=== PATIENT | male | born 1940 | race Caucasian/White ===

== ENCOUNTER → 2017-06-13 | Day surgery (SDC) | payer MEDICARE, OTHER ==
[2017-06-13] VITALS (7 sets, daily range): BP systolic 116–126; BP diastolic 76–92; PULSE 56–71; RESP 12–18; O2SAT 94–98
[~2017-06-13] VITALS: Ht 188 cm; Wt 116.1 kg
[~2017-06-13] MED LIST: ASPI325T32 PO; Atropine 0.4 mg/mL Inj IVPUSH PRN; CeFAZolin 2 Gm/50 mL D5W Duplex Bag IV ONE; CeFAZolin Inj 2 GM in IV Premix 1 EACH IV ONE; DICL100G26 TOPICAL; Dexamethasone 4 mg/mL Inj IVPUSH PRN; EMPA10TA PO; EPHEDrine Sulfate 50 mg/mL Inj IVPUSH PRN; EPHEDrine/NS 5 mg/mL 5 mL Syringe ONE; HYDR-4003 PO; HYDROcodone-APAP 5-325 mg Tablet PO PRN; HYDROmorphone 1 mg/mL Inj IVPUSH PRN; LISI40TA PO; Lactated Ringer's 1,000 ML IV SCH; Lactated Ringer's 500 ML IV PRN; METF1000 PO; MetoCLOpramide 5 mg/mL 2 mL Inj IVPUSH PRN; Ondansetron 2 mg/mL 2 mL Inj IVPUSH PRN; Ondansetron 2 mg/mL 2 mL Inj ONE; Phenylephrine 10,000 mCg/mL Inj IVPUSH PRN; Propofol 10,000 mCg/mL 20 mL Inj ONE; SILD100T PO; SIMV40TA5 PO; TAMS0.4C98 PO; fentaNYL-PF 50 mCg/mL 2 mL Inj IVPUSH PRN; fentaNYL-PF 50 mCg/mL 2 mL Inj ONE
[2017-06-13] MEDS: Lactated Ringer's 1,000 ML IV SCH ×2 (06:37→07:29)
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
--- NOTE | 2017-06-13 08:18 | PCM.ANEP1 ---
Post Anesthesia PACU Phase 1 Assessment Date of Service: Jun 13, 2017 Vital Signs 36.5 121/82 71 12 94% RA Anesthetic Administered: GA Level of Alertness: Awake, talking DO's with Equal Strength: Yes Pain: Yes Pain Scale Score: 2 Nausea or Vomiting: No CV Function & Hydration Stable: Yes Airway Device: Oxygen Delivery: Room Air Lungs: Clear to Auscultation, Normal Air Movement PACU Phase 2 Assessment Complications: No Follow up Care: N/A Patient Instructions Provided: N/A Law Montoya MD Jun 13, 2017 08:18
--- NOTE | 2017-06-13 08:41 | DRSVH ---
PROCEDURE: X-RAY KUB ([id number]) INDICATIONS: RIGHT KIDNEY STONE TECHNIQUE: One view of the abdomen acquired. COMPARISON: [facility], CR, XR KUB, 05/27/2017, 10:07. FINDINGS: Surgical changes and devices: None. Bowel: Bowel gas pattern is normal. Soft tissues: There is unchanged appearance of a 5 mm right renal calcification Bones: Multilevel discogenic changes and mild bilateral hip joint degeneration IMPRESSION: Unchanged right nephrolithiasis since 05/27/17 Dictated by: Aureliano Cunningham M.D. on 06/13/2017 at 8:36 Approved by: Aureliano Cunningham M.D. on 06/13/2017 at 8:40
--- NOTE | 2017-06-13 10:36 | OP ---
[address] [address] OPERATIVE REPORT PATIENT: MAYO LOCKWOOD : 1940 MR#: [id number] ADMIT: 06/13/2017 JOB ID: [id number] DATE OF SURGERY: 06/13/2017 PREOPERATIVE DIAGNOSIS(ES): Right kidney stone. POSTOPERATIVE DIAGNOSIS(ES): Right kidney stone. PROCEDURE PERFORMED: Right extracorporeal shockwave lithotripsy. SURGEON: Enma Reeder MD BIOLOGICAL SCIENCE TECHNICIAN: None. FINDINGS: 1. Right upper pole kidney stone. 2. 2000 shocks in total delivered to the kidney stone, power level between 4 and 7. 3. Excellent hazing of the stone within the first several hundred shocks. ANESTHESIA: General. ESTIMATED BLOOD LOSS: None. DRAINS: None. SPECIMENS: None. COMPLICATIONS: None. CONDITION: Stable. INDICATION FOR PROCEDURE: The patient is a 77-year-old gentleman with a right kidney stone. He now presents for the aforementioned procedure. DESCRIPTION OF PROCEDURE: After informed consent was obtained, the patient was taken to the operating room. Time-out was performed, identifying correct patient, surgical site, and procedure. General anesthesia was smoothly induced. He was given intravenous antibiotics just prior to start of procedure. He was placed in a supine position. He was placed over the lithotripter device. The stone was easily located within the cross hairs. The stone was submitted to the aforementioned shocks. There was excellent hazing of the stone. At the termination of procedure the stone could no longer be seen on fluoroscopy. The patient appeared to tolerate the procedure well without apparent complication. He was reversed from general anesthesia and taken to the PACU in good and stable condition. CAILIN
== END | disposition home or self-care (01) ==
LOC: SAS 05:30
PROVIDERS: ATTEND Urology
DX: N20.0 Calculus of kidney (principal); I10 Essential (primary) hypertension; E11.9 Type 2 diabetes mellitus without complications; E78.5 Hyperlipidemia, unspecified; I73.00 Raynaud's syndrome without gangrene; Z87.891 Personal history of nicotine dependence; E66.9 Obesity, unspecified; Z68.33 Body mass index [BMI] 33.0-33.9, adult; Z79.82 Long term (current) use of aspirin; Z79.84 Long term (current) use of oral hypoglycemic drugs
CPT/HCPCS: 50590; 74000; J0690; J2405; J2704; J3010; J7120

== ENCOUNTER 2017-06-16 11:00 | Emergency (ER) | payer MEDICARE, OTHER ==
[~2017-06-16] VITALS: Ht 188 cm; Wt 116.0 kg
[~2017-06-16 11:00] MED LIST changes: -Atropine 0.4 mg/mL Inj IVPUSH PRN; -CeFAZolin 2 Gm/50 mL D5W Duplex Bag IV ONE; -CeFAZolin Inj 2 GM in IV Premix 1 EACH IV ONE; -DICL100G26 TOPICAL; -Dexamethasone 4 mg/mL Inj IVPUSH PRN; -EPHEDrine Sulfate 50 mg/mL Inj IVPUSH PRN; -EPHEDrine/NS 5 mg/mL 5 mL Syringe ONE; -HYDROcodone-APAP 5-325 mg Tablet PO PRN; -HYDROmorphone 1 mg/mL Inj IVPUSH PRN; -Lactated Ringer's 1,000 ML IV SCH; -Lactated Ringer's 500 ML IV PRN; -MetoCLOpramide 5 mg/mL 2 mL Inj IVPUSH PRN; -Ondansetron 2 mg/mL 2 mL Inj IVPUSH PRN; -Ondansetron 2 mg/mL 2 mL Inj ONE; -Phenylephrine 10,000 mCg/mL Inj IVPUSH PRN; -Propofol 10,000 mCg/mL 20 mL Inj ONE; -TAMS0.4C98 PO; -fentaNYL-PF 50 mCg/mL 2 mL Inj IVPUSH PRN; -fentaNYL-PF 50 mCg/mL 2 mL Inj ONE
[2017-06-16 11:06] VITALS: BP 167/115; PULSE 53; RESP 20
[2017-06-16] MEDS ORDERED: Ondansetron 2 mg/mL 2 mL Inj IVPUSH ONE (11:15)
[2017-06-16] MEDS ORDERED: HYDROmorphone 0.5 mg/0.5 mL iSecure Syringe IVPUSH PRN (11:15)
[2017-06-16] MEDS ORDERED: Lidocaine 2% 6mL Topical Jelly TOPICAL ONE (11:15)
--- NOTE | 2017-06-16 11:17 | ED.REPORT ---
HPI- Male Date of Service Jun 16, 2017 ED Provider: Jorge Cortez MD History of Present Illness: Sent from urgent care for argueta and bladder irrigation with c/o urinary retention and gross hematuria following lithotripsy earlier this week A 77 year old male with a history of type II diabetes mellitus, hypertension, and recent right kidney stone s/p lithotripsy (06/13/17) presents to the ED with hematuria that began 3 days ago. Patient was sent from for Argueta and bladder irrigation secondary to recent urinary retention and dysuria. Patient was able to urinate upon initial examination and he noted bright red blood with clots present. The blood in his urine has been intermittent since onset 3 days ago. He currently takes aspirin and has been taking as directed for the past week. He reports experiencing lightheadedness over the past few days. Patient denies fever, chills, or diaphoresis. Nursing Notes Stated Complaint: BLOOD CLOT/SENT BY URGENT CARE Chief Complaint: Male Abdominal Pain Nursing Notes Reviewed: Yes Allergies: Coded Allergies: morphine (Verified Allergy, Unknown, blood pressure dropped, 06/16/17) Uncoded Allergies: BEE STINGS (Allergy, Severe, SWELLING, 04/21/13) Scheduled Aspirin (Aspirin) 325 Mg Tablet 325 MG PO DAILY Empagliflozin (Jardiance) 10 Mg Tablet 10 MG PO DAILY Lisinopril (Lisinopril) 40 Mg Tablet 40 MG PO DAILY Metformin (Glucophage) 1,000 Mg Tablet 1,000 MG PO BID Simvastatin (Simvastatin) 40 Mg Tablet 40 MG PO HS Tamsulosin (Flomax) 0.4 Mg Capsule 0.4 MG PO DAILY Scheduled PRN Hydrocodone-Acetaminophen 5-325 mg (Hydrocodone-Acetaminophen 5-325 mg) 1 Each Tablet 1 TABLET PO Q6H PRN PRN For Pain Sildenafil Citrate (Viagra) 100 Mg Tablet 100 MG PO UD PRN PRN erectile dysfunction General Time Seen by MD: 11:13 Chief Complaint Blood in urine Hx Obtained From: Patient Arrived By: Walk-in Onset Occurred: 3 days ago Symptom Duration: Since onset Associated with: Reports: UTI symptoms... (Hematuria) Pertinent Negative: Pt denies other symptoms Recent Healthcare: Recent doctor visit, Recent hospitalization Similar Sx Previous: No Past Medical History Past Medical History Type II DM Hypertension Kidney Stones Hyperlipedemia Past Surgical History LT WRIST GANGLION LIPOMA EXC RT FOOT GROWTH EXC APPY LITHOTRIPSY Smoking History Never Smoker Social History Alcohol Use: "Social" Other Social History: Good social support, , Local resident Ambulatory Status Independent Review of Systems Constitutional: Denies: Chills, Fever Male: Reports Dysuria, Reports Hematuria, Reports Incontinence Skin: Denies Diaphoresis Complete sys rev & neg: except as marked. Physical Exam Initial Vital Signs Vital Signs (First) Date Time Temp Pulse Resp B/P Pulse Ox O2 Delivery O2 Flow Rate FiO2 06/16/17 11:06 36.6 53 20 167/115 Initial VS: Reviewed, Vital signs abnormal (HTN) Head / Eyes: Atraumatic, Normocephalic, PERRL Neck: Supple, Non-tender, Full range of motion Extremities: Vascular intact, Neuro intact, No swelling, No tenderness Skin: Warm, Dry, No cyanosis Neurologic: Alert, Oriented, Nonfocal Psychiatric: Mood/affect normal, Behavior normal, Normal thought content General/Constitutional: Awake, Alert, No acute distress Abdomen: Atraumatic, Soft, Non-tender Respiratory / Chest: Atraumatic, Breath sounds NL, Breath sounds = bilat, No respiratory distress Cardiovascular: Heart rate NL, Regular rhythm, Heart sounds NL Interpretation & Diagnostics Lab Results Interpretation Result Diagram: 06/16/17 1305 06/16/17 1305 Test 06/16/17 12:50 06/16/17 13:05 Urine Color Bloody (YELLOW) Urine Appearance Turbid (CLEAR,HAZY) Urine pH 6.5 (5.0-8.0) Urine Specific Huddy 1.015 (1.003-1.035) Urine Protein >=300mg/dL (NEG,TRACE) Urine Glucose (UA) >=1000mg/dL (NEGATIVE) Urine Ketones Tracemg/dL (NEGATIVE) Urine Occult Blood Large (NEGATIVE) Urine Nitrite Negative (NEGATIVE) Urine Bilirubin Negative (NEGATIVE) Urine Urobilinogen 1.0mg/dL (NORMAL) Urine Leukocyte Esterase Trace (NEGATIVE) Urine RBC Packed/hpf (0-2) Urine WBC 0-5/hpf (0-5) Urine Epithelial Cells None/hpf (NONE-MOD) Urine Crystals None seen (NONE SEEN) Urine Bacteria None/hpf (NONE-FEW) Urine Hyaline Casts None/lpf (NONE) Urine Granular Casts None seen (NONE SEEN) Urine Waxy Casts None seen (NONE SEEN) Urine Red Blood Cell Casts None seen (NONE SEEN) Urine White Blood Cell Casts None seen (NONE SEEN) Urine Mucus None seen (None Seen) Urine Trichomonas None seen (NONE SEEN) Urine Yeast None (NONE SEEN) Urinalysis Comment None Urine Culture Reflexed Not indicated White Blood Count 7.0th/mm3 (3.8-10.1) Red Blood Count 4.41mil/mm3 (4.40-5.80) Hemoglobin 14.2g/dL (13.8-17.2) Hematocrit 41.4% (41.0-50.0) Mean Corpuscular Volume 93.9fL (81-100) Mean Corpuscular Hemoglobin 32.2pg (27.0-35.0) Mean Corpuscular Hemoglobin Concent 34.3% (32.0-37.0) Red Cell Distribution Width 13.0% (12.3-15.4) Platelet Count 219bil/L (150-400) Neutrophils (%) (Auto) 66.8% (40-74) Lymphocytes (%) (Auto) 20.7% (14-46) Monocytes (%) (Auto) 10.4% (4-12) Eosinophils (%) (Auto) 1.7% (0-5) Basophils (%) (Auto) 0.3% (0-3) Prothrombin Time 10.0sec (8.1-12.5) Prothromb Time International Ratio 0.94ratio Sodium Level 137mEq/L (134-144) Potassium Level 5.1mEq/L (3.5-5.2) Chloride Level 100mEq/L (97-108) Carbon Dioxide Level 23mmol/L (18-29) Blood Urea Nitrogen 21mg/dL (8-27) Creatinine 1.07mg/dL (0.76-1.27) Estimat Glomerular Filtration Rate 72mL/min (>59) Glucose Level 119mg/dL (60-99) Calcium Level 9.2mg/dL (8.5-10.1) Total Bilirubin 0.5mg/dL (0.0-1.2) Aspartate Amino Transf (AST/SGOT) 15U/L (0-50) Alanine Aminotransferase (ALT/SGPT) 12U/L (0-44) Alkaline Phosphatase 67U/L (25-160) Total Protein 7.5g/dL (6.4-8.4) Albumin 4.2g/dL (3.4-5.0) Lab Results Interpretation: CBC normal CMP normal UA positive gross hematuria, negative for markers of infection Re-Eval/Medical Decision Med Decision/Clinical Course This is a 77-year-old male on aspirin and he is sent over from urgent care with gross hematuria and urinary retention and inability urinate at urgent care. Patient had lithotripsy earlier this week. However on arrival to the ED he tried urinating and was able to urinate several 100cc, initial postvoid residual is just over 100 mL an ultrasound, but he is able to urinate again with a repeat postvoid residual of less than 50 mL. Symptoms resolved. He was then able to urinate several more times while being observed in the department, and had no further urinary retention. He reports that since this lithotripsy this week it initially done well, but developed some gross hematuria yesterday. It was worse today. His chills or infectious symptoms. Labs are normal, vitals are normal. Urine is gross blood. Initial plan had been a Argueta in urination, but given the patient's able to urinate, and have a normal post-void residual. The patient's couple discharged home, understands there is a risk of possible urinary retention recurrence-but is willing to return should it occur. Case was discussed with urology recommends the addition of tamsulosin in the setting to follow-up with her regular urologist later this week. Routine and return precautions reviewed. Patient is discharged asymptomatic in good condition. Source of Hx: Old records Re-Evaluation/Progress #1: Time of Eval: 12:55 Patient Status: Condition improved Re-Evaluation/Progress Note: Patient is rechecked. Symptpoms have improved upon reeval. He is informed of his current and pending results. Patient was able to produce 300cc of urine. Re-Evaluation/Progress #2: Time of Eval: 12:55 Patient Status: Condition improved Re-Evaluation/Progress Note: Patient states that he was able to urinate again. Question about whether to flush catheter is addressed. He denies any catheter treatment at this time. Patient understands and agrees with the intended treatment plan at this time. Consultation : Referral / Consult Name: Shea Marie PA-C Consulted With: Urology Call Returned at: 13:44 Coding Compliance Specialist: Will see patient, Will see in office, Agrees with eval, Agrees with plan Note: Discussed pt condition. Will follow up with pt in office. Differential Diagnosis: Positive: Urinary retention (resolved), Negative: Abrasion, Abscess, Adhesions-foreskin, Cystitis, acute, Epididymitis, Hypospadias, Pyelonephritis, acute, Syphilis Counseled Regarding: Diagnosis, Lab results, Need for follow-up, When/why to return to ED Discharge & Departure Impression: Primary Impression: Gross hematuria Additional Impression: Urinary retention Disposition: Home Discharge Condition All VS Reviewed: Yes Condition: Improved Patient Instructions: Hematuria (ED), Postoperative Bleeding (ED) Additional Instructions: 1. You had some blood clots following your procedure that led to transient obstruction and urinary retention, that appears to resolved at this time. 2. Continue to drink plenty of fluids 3. Stop your aspirin for the next week 4. The urologist recommends taking tamsulosin 0.4 mg once a day to help with urination for the next week. 5. Follow-up with the urologist this week 6. As discussed, if he develop recurrent difficulties urinating-return to the emergency department Referrals: Ramírez Reeves DO (PCP) Scribe Attestation Portions of this note were transcribed by Tania Jaffe. I, Dr. Cortez, personally performed the history, physical exam and medical decision-making; I reviewed and confirmed the accuracy of the information in the transcribed note. Signed by: Tania Jaffe, 06/16/17. copies to: Ramírez Reeves Matthew F MD Jun 16, 2017 11:17 TANIA JAFFE Jun 16, 2017 11:25
[2017-06-16 13:08] LABS: APPEARANCE,URINE TURBID (CLEAR,HAZY); COLOR,URINE BLOODY (YELLOW); PH,URINE 6.5 (5.0-8.0)
[2017-06-16 13:09] LABS: OCCULT BLOOD,URINE LARGE (NEGATIVE)
[2017-06-16 13:13] LABS: BASOPHILS % (AUTO) 0.3 % (0-3); EOSINOPHILS % (AUTO) 1.7 % (0-5); MONOCYTES % (AUTO) 10.4 % (4-12); Mean Corpuscular Hemoglobin 32.2 pg (27.0-35.0); Mean Corpuscular Volume 93.9 fL (81-100); NEUTROPHILS % (AUTO) 66.8 % (40-74); Platelet Count 219 bil/L (150-400)
[2017-06-16 13:36] LABS: INR 0.94 ratio
[2017-06-16] MEDS ORDERED: TAMS0.4C98 PO (13:47)
[2017-06-16 14:12] VITALS: BP 138/89; PULSE 59; RESP 15; O2SAT 100
== END 2017-06-16 14:00 | disposition home or self-care (01) ==
LOC: SED 11:00
DX: R31.0 Gross hematuria (principal); R33.9 Retention of urine, unspecified; E11.9 Type 2 diabetes mellitus without complications; I10 Essential (primary) hypertension; E78.5 Hyperlipidemia, unspecified; Z87.442 Personal history of urinary calculi; Z90.89 Acquired absence of other organs; Z98.890 Other specified postprocedural states; Z87.891 Personal history of nicotine dependence; Z79.82 Long term (current) use of aspirin; Z79.84 Long term (current) use of oral hypoglycemic drugs; Z88.5 Allergy status to narcotic agent
CPT/HCPCS: 36415; 51798; 80053; 81000; 85025; 85610; 99284; G0463